=== PATIENT | male | born 1955 | race Caucasian/White ===

== ENCOUNTER 2019-07-21 06:07 | Inpatient (IN) | payer MEDICARE ==
[~2019-07-21] VITALS: Ht 175.3 cm; Wt 67.3 kg
[2019-07-21 07:03] VITALS: BP 119/82
[2019-07-21] MEDS ORDERED: LEVE500T22 PO (07:26)
[2019-07-21] MEDS ORDERED: CHOL2000 PO (07:26)
[2019-07-21] MEDS ORDERED: BACITRACIN 50,000 UNIT ONE (07:26)
[2019-07-21] MEDS ORDERED: BUPIVACAINE/PF 0.5% ONE (07:26)
[2019-07-21] MEDS ORDERED: UBID30CA9 PO (07:26)
[2019-07-21] MEDS ORDERED: OMEG1CAP6 PO (07:26)
[2019-07-21] MEDS ORDERED: LACTATED RINGERS 1,000 ML IV SCH (07:26)
[2019-07-21] MEDS ORDERED: CHOL200059 PO (07:26)
[2019-07-21] MEDS ORDERED: EPINEPHRINE 1 MG/ML, 1ML ONE (07:26)
[2019-07-21] MEDS ORDERED: L.AC1CAP6 PO (07:26)
[2019-07-21] MEDS ORDERED: ALPR0.254 PO (07:26)
[2019-07-21] MEDS ORDERED: FENTANYL PF 100 MCG/2ML ONE ×2 (07:34→08:52)
[2019-07-21] MEDS ORDERED: GLYCOPYRROLATE 0.2MG/1ML, 5ML ONE (07:40)
[2019-07-21] MEDS ORDERED: PROPOFOL 10 MG/ML, 20ML ONE (07:40)
[2019-07-21] MEDS ORDERED: ROCURONIUM 10MG/ML,5ML ONE (07:40)
[2019-07-21] MEDS ORDERED: CEFAZOLIN 1,000 MG ONE (07:40)
[2019-07-21] MEDS ORDERED: DEXAMETHASONE 4 MG/ML, 1ML ONE (07:40)
[2019-07-21] MEDS ORDERED: SUCCINYLCHOLINE 20 MG/ML, 10ML ONE (07:40)
[2019-07-21] MEDS ORDERED: ONDANSETRON 2MG/ML, 2ML ONE ×2 (07:40→09:10)
[2019-07-21] MEDS ORDERED: LIDOCAINE-MPF 2% ,5ML ONE (07:41)
[2019-07-21 07:47] LABS: BASOPHILS # (AUTO) 0.05 x10^3/uL (0-0.1); BASOPHILS % (AUTO) 1 % (0-1); EOSINOPHILS # (AUTO) 0.13 x10^3/uL (0-0.4); EOSINOPHILS % (AUTO) 2 % (1-7); LYMPHOCYTES # (AUTO) 1.15 x10^3/uL (1-3.4); LYMPHOCYTES % (AUTO) 13 % (22-44); MD NO; MEAN CORPUSCULAR HGB CONC 31.9 g/dL (33.2-36.2); MEAN CORPUSCULAR VOLUME 87.9 fL (81-97); MEAN PLATELET VOLUME 8.5 fL (7.4-10.4); MONOCYTES # (AUTO) 0.39 x10^3/uL (0.2-0.8); MONOCYTES % (AUTO) 5 % (2-9); NEUTROPHILS # (AUTO) 6.98 x10^3/uL (1.8-6.8); NEUTROPHILS % (AUTO) 80 % (42-75); PLATELET COUNT 289 x10^3/uL (130-400); RED BLOOD COUNT 4.53 x10^6/uL (4.38-5.82); RED CELL DISTRIBUTION WIDTH 17.7 % (9.4-14.8)
[2019-07-21 07:57] LABS: INTERNATIONAL NORMALIZED RATIO 0.96 (0.93-1.1); PROTHROMBIN TIME 10.1 Seconds (9.6-11.5)
[2019-07-21 07:59] LABS: ANION GAP 5 mmol/L (5-15); CALCIUM 8.6 mg/dL (8.5-10.1); CHLORIDE 112 mmol/L (98-107)
[2019-07-21] MEDS ORDERED: HYDROmorphone 2 MG/ML, 1ML IVPush PRN (08:00)
[2019-07-21] MEDS ORDERED: LABETALOL 5MG/ML, 20ML IV PRN ×2 (08:00→08:30)
[2019-07-21] MEDS ORDERED: PROMETHAZINE 25 MG/ML, 1ML IV PRN (08:00)
[2019-07-21] MEDS ORDERED: EPHEDRINE 50 MG/ML, 1ML IVPush PRN (08:00)
[2019-07-21] MEDS ORDERED: hydrALAzine 20 MG/ML, 1ML IV PRN (08:00)
[2019-07-21] MEDS ORDERED: ONDANSETRON 2MG/ML, 2ML IV PRN ×2 (08:00→08:30)
[2019-07-21] MEDS ORDERED: OXYcodone 5 MG/5 ML ORAL.SOL UDC PO PRN (08:00)
[2019-07-21] MEDS ORDERED: MEPERIDINE/PF 25MG/ML,1ML IVPush PRN (08:00)
[2019-07-21] MEDS ORDERED: ACETAMINOPHEN 325 MG TABLET PO PRN ×2 (08:00→08:30)
[2019-07-21] MEDS ORDERED: FENTANYL PF 100 MCG/2ML IV PRN (08:00)
[2019-07-21] MEDS ORDERED: LIDOCAINE GEL 2%, 5ML ONE (08:11)
[2019-07-21] MEDS ORDERED: BISACODYL 10 MG SUPP PR PRN (08:30)
[2019-07-21] MEDS ORDERED: ACETAMINOPHEN 650 MG/20.3 ML UDC PO PRN (08:30)
[2019-07-21] MEDS ORDERED: ACETAMINOPHEN 650 MG SUPP PR PRN ×2 (08:30)
[2019-07-21] MEDS ORDERED: morphine SULFATE 10 MG/ML, 1ML IV PRN (08:30)
[2019-07-21] MEDS ORDERED: MAGNESIUM HYDROXIDE 8%, 30ML UDC PO PRN (08:30)
[2019-07-21] MEDS ORDERED: PHARMACY MAY ADJ FOR RENAL FX MC SCH (08:30)
[2019-07-21] MEDS: SENNA/DOCUSATE TABLET PO SCH (09:00)
[2019-07-21] MEDS: LEVETIRACETAM 500 MG TABLET PO SCH ×2 (09:00→20:46)
[2019-07-21] MEDS ORDERED: SUGAMMADEX 200 MG/2 ML IVPush ONE (09:10)
[2019-07-21] MEDS: CEFAZOLIN PMX 1GM/50ML 50 ML IVPB SCH ×2 (14:30→20:46)
[2019-07-22 04:00] VITALS: BP 113/69
[2019-07-22 04:30] LABS: ANION GAP 5 mmol/L (5-15); CALCIUM 8.1 mg/dL (8.5-10.1); CHLORIDE 110 mmol/L (98-107); CREATININE 0.61 mg/dL (0.7-1.3); MEAN CORPUSCULAR HEMOGLOBIN 28.7 pg (27.5-34.5); MEAN CORPUSCULAR HGB CONC 32.1 g/dL (33.2-36.2); MEAN CORPUSCULAR VOLUME 89.4 fL (81-97); MEAN PLATELET VOLUME 8.6 fL (7.4-10.4); PLATELET COUNT 283 x10^3/uL (130-400); RED BLOOD COUNT 4.34 x10^6/uL (4.38-5.82); RED CELL DISTRIBUTION WIDTH 17.5 % (9.4-14.8)
[2019-07-22 04:49] LABS: BASOPHILS # (AUTO) 0.01 x10^3/uL (0-0.1); BASOPHILS % (AUTO) 0 % (0-1); EOSINOPHILS # (AUTO) 0.05 x10^3/uL (0-0.4); EOSINOPHILS % (AUTO) 1 % (1-7); LYMPHOCYTES # (AUTO) 1.35 x10^3/uL (1-3.4); LYMPHOCYTES % (AUTO) 12 % (22-44); MD SCAN; MONOCYTES # (AUTO) 0.45 x10^3/uL (0.2-0.8); MONOCYTES % (AUTO) 4 % (2-9); NEUTROPHILS # (AUTO) 9.19 x10^3/uL (1.8-6.8); NEUTROPHILS % (AUTO) 83 % (42-75)
[2019-07-22] MEDS: SENNA/DOCUSATE TABLET PO SCH (09:00)
[2019-07-22] MEDS: LEVETIRACETAM 500 MG TABLET PO SCH ×2 (09:19→20:39)
[2019-07-22] MEDS: OXYcodone/APAP 5/325MG TABLET PO PRN ×2 (09:19→19:18)
[2019-07-23 04:00] VITALS: BP 125/68
[2019-07-23 04:48] LABS: ANION GAP 5 mmol/L (5-15); CALCIUM 8.1 mg/dL (8.5-10.1); CHLORIDE 110 mmol/L (98-107); CREATININE 0.59 mg/dL (0.7-1.3)
[2019-07-23 04:52] LABS: BASOPHILS # (AUTO) 0.02 x10^3/uL (0-0.1); BASOPHILS % (AUTO) 0 % (0-1); EOSINOPHILS # (AUTO) 0.27 x10^3/uL (0-0.4); EOSINOPHILS % (AUTO) 3 % (1-7); LYMPHOCYTES # (AUTO) 1.78 x10^3/uL (1-3.4); LYMPHOCYTES % (AUTO) 21 % (22-44); MD NO; MEAN CORPUSCULAR HEMOGLOBIN 28.3 pg (27.5-34.5); MEAN CORPUSCULAR HGB CONC 31.5 g/dL (33.2-36.2); MEAN CORPUSCULAR VOLUME 89.8 fL (81-97); MEAN PLATELET VOLUME 8.3 fL (7.4-10.4); MONOCYTES % (AUTO) 5 % (2-9); NEUTROPHILS % (AUTO) 71 % (42-75); PLATELET COUNT 263 x10^3/uL (130-400); RED BLOOD COUNT 4.54 x10^6/uL (4.38-5.82); RED CELL DISTRIBUTION WIDTH 17.6 % (9.4-14.8)
[2019-07-23] MEDS: SENNA/DOCUSATE TABLET PO SCH (07:54)
[2019-07-23] MEDS ORDERED: LIDOCAINE-MPF 1%, 2ML ONE (08:13)
[2019-07-23] MEDS: LEVETIRACETAM 500 MG TABLET PO SCH ×2 (09:24→20:58)
[2019-07-23] MEDS ORDERED: HALOPERIDOL 5 MG/ML IV SCH (11:30)
[2019-07-23] MEDS ORDERED: VALPROATE SODIUM 100 MG/ML, 5ML IV SCH (11:30)
[2019-07-23] MEDS: VALPROATE SODIUM 250 MG in SODIUM CHLORIDE 0.9% 100 ML IV SCH ×2 (12:13→23:11)
[2019-07-23] MEDS ORDERED: PHARMACY INSTRUCTION MC PRN (15:00)
[2019-07-23] MEDS ORDERED: INSTRUCTION SEE COMMENTS XX PRN (15:00)
[2019-07-23] MEDS ORDERED: POTASSIUM CHLORIDE 20 MEQ TAB.ER.PRT PO ONE (16:30)
[2019-07-23] MEDS: HALOPERIDOL 5 MG/ML IM SCH ×2 (18:03→20:59)
[2019-07-23] MEDS: MELATONIN 3 MG TABLET PO SCH (20:58)
[2019-07-24 04:00] VITALS: BP 138/78
[2019-07-24 04:46] LABS: BASOPHILS # (AUTO) 0.03 x10^3/uL (0-0.1); BASOPHILS % (AUTO) 1 % (0-1); EOSINOPHILS % (AUTO) 3 % (1-7); LYMPHOCYTES # (AUTO) 1.69 x10^3/uL (1-3.4); LYMPHOCYTES % (AUTO) 25 % (22-44); MD NO; MEAN CORPUSCULAR HEMOGLOBIN 28.1 pg (27.5-34.5); MEAN CORPUSCULAR HGB CONC 31.6 g/dL (33.2-36.2); MEAN CORPUSCULAR VOLUME 89.1 fL (81-97); MEAN PLATELET VOLUME 8.5 fL (7.4-10.4); MONOCYTES # (AUTO) 0.33 x10^3/uL (0.2-0.8); MONOCYTES % (AUTO) 5 % (2-9); NEUTROPHILS # (AUTO) 4.62 x10^3/uL (1.8-6.8); NEUTROPHILS % (AUTO) 67 % (42-75); PLATELET COUNT 259 x10^3/uL (130-400); RED BLOOD COUNT 4.58 x10^6/uL (4.38-5.82); RED CELL DISTRIBUTION WIDTH 17.4 % (9.4-14.8)
[2019-07-24 04:56] LABS: CALCIUM 8.8 mg/dL (8.5-10.1); CHLORIDE 111 mmol/L (98-107)
[2019-07-24 05:02] LABS: ALANINE AMINOTRANSFERASE 28 U/L (12-78); ALBUMIN 2.7 g/dL (3.4-5.0); ALKALINE PHOSPHATASE 72 U/L (45-117); ANION GAP 7 mmol/L (5-15); BILIRUBIN,TOTAL 0.5 mg/dL (0.2-1.0); CREATININE 0.62 mg/dL (0.7-1.3)
[2019-07-24 07:57] VITALS: BP 136/87
[2019-07-24] MEDS ORDERED: HALOPERIDOL 5 MG/ML IM PRN (08:00)
[2019-07-24] MEDS: D5%-0.45NACL+KCL 20MEQ 1,000 ML IV SCH ×2 (08:00→19:52)
[2019-07-24] MEDS: LEVETIRACETAM 500 MG TABLET PO SCH ×2 (08:01→19:51)
[2019-07-24] MEDS: SENNA/DOCUSATE TABLET PO SCH (08:02)
[2019-07-24] MEDS ORDERED: HALOPERIDOL 5 MG/ML IV PRN (13:00)
[2019-07-24] MEDS: VALPROATE SODIUM 250 MG in SODIUM CHLORIDE 0.9% 100 ML IV SCH (13:15)
[2019-07-24 13:21] VITALS: BP 113/71
[2019-07-24] MEDS: OXYcodone/APAP 5/325MG TABLET PO PRN ×2 (18:47→19:50)
[2019-07-24 19:04] VITALS: BP 115/76
[2019-07-24] MEDS: MELATONIN 3 MG TABLET PO SCH (19:50)
[2019-07-25 00:58] VITALS: BP 106/72
[2019-07-25] MEDS: VALPROATE SODIUM 250 MG in SODIUM CHLORIDE 0.9% 100 ML IV SCH ×2 (01:39→13:05)
[2019-07-25] MEDS: OXYcodone/APAP 5/325MG TABLET PO PRN (05:13)
[2019-07-25 05:32] LABS: BASOPHILS # (AUTO) 0.02 x10^3/uL (0-0.1); BASOPHILS % (AUTO) 0 % (0-1); EOSINOPHILS % (AUTO) 5 % (1-7); LYMPHOCYTES # (AUTO) 1.44 x10^3/uL (1-3.4); LYMPHOCYTES % (AUTO) 23 % (22-44); MD NO; MEAN CORPUSCULAR HEMOGLOBIN 28.1 pg (27.5-34.5); MEAN CORPUSCULAR HGB CONC 31.1 g/dL (33.2-36.2); MEAN CORPUSCULAR VOLUME 90.3 fL (81-97); MEAN PLATELET VOLUME 8.5 fL (7.4-10.4); MONOCYTES # (AUTO) 0.35 x10^3/uL (0.2-0.8); MONOCYTES % (AUTO) 6 % (2-9); NEUTROPHILS # (AUTO) 4.09 x10^3/uL (1.8-6.8); NEUTROPHILS % (AUTO) 66 % (42-75); PLATELET COUNT 227 x10^3/uL (130-400); RED BLOOD COUNT 4.46 x10^6/uL (4.38-5.82); RED CELL DISTRIBUTION WIDTH 17.6 % (9.4-14.8)
[2019-07-25 05:39] LABS: ANION GAP 4 mmol/L (5-15); CALCIUM 8.6 mg/dL (8.5-10.1); CHLORIDE 112 mmol/L (98-107); CREATININE 0.67 mg/dL (0.7-1.3)
[2019-07-25 07:32] VITALS: BP 130/87
[2019-07-25] MEDS: SENNA/DOCUSATE TABLET PO SCH (09:00)
[2019-07-25] MEDS: LEVETIRACETAM 500 MG TABLET PO SCH (10:02)
[2019-07-25] MEDS: D5%-0.45NACL+KCL 20MEQ 1,000 ML IV SCH (12:19)
[2019-07-25 13:36] VITALS: BP 149/91
[2019-07-25] MEDS ORDERED: CEPH-368 PO (16:56)
== END 2019-07-25 17:12 | disposition home or self-care (01) | DRG 25 ==
LOC: ORIP 06:07 → CCU 11:02 → 5SO 07-24 08:21 → DCLOUNGE 07-25 16:55
PROVIDERS: ADMIT Neurological Surgery; ATTEND Family Medicine
PROC: 00930ZZ Drainage of Intracranial Epidural Space, Open Approach (ICD-10-PCS; 2019-07-21)
PROC: 009400Z Drainage of Intracranial Subdural Space with Drainage Device, Open Approach (ICD-10-PCS; principal; 2019-07-21 08:00)
DX: I62.03 Nontraumatic chronic subdural hemorrhage (principal); G93.41 Metabolic encephalopathy; F23 Brief psychotic disorder; G93.89 Other specified disorders of brain; C67.9 Malignant neoplasm of bladder, unspecified; E78.5 Hyperlipidemia, unspecified; E87.6 Hypokalemia; F41.9 Anxiety disorder, unspecified; I10 Essential (primary) hypertension; I25.10 Atherosclerotic heart disease of native coronary artery without angina pectoris; Z79.52 Long term (current) use of systemic steroids; Z82.49 Family history of ischemic heart disease and other diseases of the circulatory system; Z85.51 Personal history of malignant neoplasm of bladder; Z87.891 Personal history of nicotine dependence; Z88.0 Allergy status to penicillin; Z79.899 Other long term (current) drug therapy; Z86.73 Personal history of transient ischemic attack (TIA), and cerebral infarction without residual deficits; I62.1 Nontraumatic extradural hemorrhage
CPT/HCPCS: 36415; 70250; 70450; 80048; 80053; 83735; 84100; 85025; 85610; 85730; 87081; 93005; C1713; G0378; J0171; J0690; J1100; J2405; J2704; J3010; C1760; J0330; J1630; J3480; J7120